=== PATIENT | female | born 1965 | race Caucasian/White ===

== ENCOUNTER 2016-07-01 12:25 | Day surgery (SDC) | payer OTHER ==
[~2016-07-01] VITALS: Ht 160 cm; Wt 58.0 kg
[~2016-07-01 12:25] MED LIST: LORA0.5T PO; SERT20OR6 PO; TRAM50TA2 PO
[2016-07-01] MEDS ORDERED: fentaNYL-PF 50 mCg/mL 2 mL Inj ONE (13:14)
[2016-07-01 13:21] VITALS: BP 134/85; PULSE 74; RESP 14; O2SAT 97
[2016-07-01 13:57] VITALS: BP 140/83; PULSE 67; RESP 12; O2SAT 100
[2016-07-01] MEDS ORDERED: 0.9% Sodium Chloride 1,000 ML IV PRN (13:57)
--- NOTE | 2016-07-01 13:57 | PCM.ENDCOL ---
Colonoscopy Date of Service: July 01, 2016 Physician Teodoro Rosen MD Pre Procedure Diagnosis: Crohn's Post Procedure Dx & Findings: Polyp hemorrhoids diverticuli normal TI Procedure Colonoscopy PROCEDURE IN DETAIL: Prep fair Withdrawal time 15 minutes After unremarkable rectal examination the Olympus video colonoscope was inserted patient's anal canal and was advanced to cecum. Landmarks were identified including the ileocecal valve and appendiceal orifice. Scope advanced to terminal ileum advanced 10 cm. Normal villous structures without any ulcer mass erosion noted. Scope was withdrawn systematically. Visualized colonic mucosa showed healthy shiny mucosa with normal healthy-appearing vasculature. 1 mm polyp in the ascending colon which is removed completely using cold forceps. There was another 1 mm polyp in the transverse colon which was removed completely using cold forcep. In the transverse colon, there was a isolated diverticula and several in the sigmoid colon. They were small. In the rectum retroflexion was done which showed hemorrhoids. Anal canal was inspected carefully on the way out and hemorrhoids noted. Impression Normal TI Fair prep Polyps 2 status post complete removal Diverticuli Hemorrhoids Recommendation Repeat colonoscopy 2-3 years Diverticula diet Presedation Assessment Risks and Benefits Informed consent was obtained from the patient after all risks and benefits including but not limited to drug reaction, infection, pain, bleeding, perforation, as well as alternatives were discussed. Patient monitoring Continuous pulse oximetry, cardiac monitoring, blood pressure monitoring, IV access, and oxygen at 2L per nasal cannula. Periprocedural Fentanyl: Fentanyl 125mcg Incrementally Midazolam: Midazolam 6mg Incrementally Complications There were no periprocedural complications identified. Post Procedure Plan Post Procedure Recommendations 1. Restrict activities today. 2. Resume normal activities in the morning. 3. Resume medications. 4. Patient informed of normal post procedure side effects as bloating, drowsiness, blood streaking in the stool. 5. average risk CRCS. If colon polyps come back as: -Hyperplastic- can repeat colonoscopy in 10 years -Tubular adenoma- repeat colonoscopy in 5 years -Tubulovillous/villous adenoma- repeat colonoscopy in 3 years -If any dysplasia- return to clinic as soon as possible 6. Please don't hesitate to call me with any questions. Teodoro Rosen MD July 01, 2016 13:57
[2016-07-01 14:10] VITALS: BP 125/68; PULSE 64; RESP 12; O2SAT 97
[2016-07-01 14:15] VITALS: BP 132/91; PULSE 76; RESP 12; O2SAT 100
[2016-07-01] MEDS ORDERED: 0.9% Sodium Chloride 1,000 ML IV ONE (14:18)
[2016-07-02] MEDS ORDERED: Sodium Chloride LOK Flush 10 mL Syringe IV PRN (06:00)
[2016-07-02] MEDS ORDERED: 0.9% Sodium Chloride 1,000 ML IV SCH (06:00)
[2016-07-02] MEDS ORDERED: fentaNYL-PF 50 mCg/mL 2 mL Inj IVPUSH PRN (06:00)
--- NOTE | 2016-07-03 14:29 | PATH ---
SURGICAL PATHOLOGY Attending Physician:Teodoro Rosen M.D. CASE STATUS: Signed Out PATIENT NAME: JAMIL BOYKIN PID: [id number] : 1965 DATE COLLECTED:07/01/2016 00:00 SPECIMEN: 1: Colon, Biopsy 2: Colon, Biopsy CLINICAL HISTORY: 1. ASCENDING COLON POLYP 2. TRANSVERSE COLON POLYP FINAL DIAGNOSIS: 1.ASCENDING COLON POLYP: POLYPOID-SHAPED FRAGMENT OF COLON MUCOSA CONSISTENT WITH MUCOSAL POLYPOID REDUNDANCY. Negative for dysplasia and malignancy. 2.TRANSVERSE COLON POLYP: TUBULAR ADENOMA. ICD10 D12.3 GROSS DESCRIPTION: The specimen is received in two formalin filled containers labeled with the patient's name. 1). The specimen is sublabeled "ascending colon polyp" and consists of a 0.4 x 0.3 x 0.2 CM portion of tissue which is entirely submitted in cassette 1A. 2). The specimen is sublabeled "transverse colon polyp" and consists of a 0.3 x 0.2 x 0.2 CM portion of tissue which is entirely submitted in cassette 2A. 07/02/2016 DAC MICRO DESCRIPTION: See diagnosis. ICD-9 CODES: CPT CODES: 1: 59628 2: 69872 Electronically Signed Out Balta Simmons MD [facility] [address] [place] [address] Technical component performed at [facility], [facility] [address], [place], [address]
== END 2016-07-01 23:59 | disposition home or self-care (01) ==
LOC: END 12:25
PROVIDERS: ATTEND Internal Medicine
DX: D12.3 Benign neoplasm of transverse colon (principal); K63.5 Polyp of colon; K57.30 Diverticulosis of large intestine without perforation or abscess without bleeding; K64.9 Unspecified hemorrhoids; Z80.0 Family history of malignant neoplasm of digestive organs
CPT/HCPCS: 45380; 99153; G0500; J2250; J3010; J7030